=== PATIENT | female | born 1980 | race Caucasian/White ===

== ENCOUNTER 2019-03-12 12:25 | Outpatient (REF) | payer OTHER, MEDICAID, SELFPAY ==
[2019-03-12 18:34] LABS: HGB 14.9 g/dL (12.0-15.5); Mean Corp. HGB Concentration 33.9 g/dL (32.0-36.0); Mean Corpuscular Hemoglobin 30.7 pg (27.0-33.0); Mean Corpuscular Volume 90.7 fL (80-95); Mean Platelet Volume 10.2 fL (8.0-11.0); Platelet Count 240 x1000/uL (130-400); RBC 4.85 m/cumm (4.00-5.20); RBC Distribution Width 12.6 % (11.7-14.6); White Blood Cell Count 4.96 k/cumm (4.4-10.8)
[2019-03-12 18:46] LABS: Iron 88 ug/dL (50-175); Total Iron Binding Capacity 269 ug/dL (250-450); Transferrin Sat 33 % (15-50)
[2019-03-12 19:22] LABS: ALT 28 U/L (14-59); AST 12 U/L (15-37); Albumin 3.9 g/dL (3.4-5.0); Alkaline Phosphatase 83 U/L (46-116); Anion Gap 12.2 mmol/L (3-11); BUN 12 mg/dL (7-18); Bilirubin, Total 0.5 mg/dL (0.2-1.0); CO2 22.8 mmol/L (21.0-32.0); CREATININE 0.87 mg/dL (0.55-1.02); Calcium 8.9 mg/dL (8.5-10.1); Chloride 103 mmol/L (98-107); Folate 7.2 ng/mL (8.6-20.0); Glucose 87 mg/dL (70-100); Potassium 4.4 mmol/L (3.5-5.1); Sodium 138 mmol/L (136-145); Total Protein 7.4 g/dL (6.4-8.2); Vitamin B12 324 pg/mL (193-986)
== END 2019-03-12 12:45 ==
LOC: NCHCN 12:25
PROVIDERS: PCP Nurse Practitioner Family; Visit Provider Nurse Practitioner Family
DX: D51.9 Vitamin B12 deficiency anemia, unspecified (principal); E83.119 Hemochromatosis, unspecified
CPT/HCPCS: 80053; 85027; 82607; 82746; 83540; 83550

== ENCOUNTER 2019-04-29 01:51 | Outpatient (CLI) | payer MEDICARE, MEDICAID, SELFPAY ==
--- NOTE | 2019-04-29 14:00 | NS.NUTBLAN_ITS ---
DESCRIPTION: Jemma presents for nutrition visit for hemochromatosis but she admits to co-morbidities of rheumatoid arthritis and depression. She had gall bladder surgery 2 years ago. Reports constipation/diarrhea. 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 She moved to this area from [place] 5 months ago and self reports weight gain of 30 pounds. She is staying with one of her twin sons. Sleeps poorly with sleep study scheduled in May. States she binge eats twice a week. She loves sweet tea and drinks 4 cups at a time. Binge foods include pizza and Indonesian buffet where she feels it doesn't appear that she binges, but she feels she does. She is now physically active at [employer] and started yandel class. INTERVENTION: Reviewed high iron foods to limit red meat to less than 3 times a week as a general guideline for healthy eating for everyone. Reviewed basic diet for healthy eating. Discussed binge eating disorder, triggers, safe and unsafe foods. Discussed stressors. Offered support options including OA and she would like to look into this. PLAN: Jemma will: eat 4 cups vegetables daily; 2 fruit; 6 oz protein; yogurt daily. She will journal food; deep breath; use food tracking izabel. She will contact OA and is given contact information She will return in 1 month for follow up
== END 2019-04-29 02:11 ==
PROVIDERS: PCP Nurse Practitioner Family; Visit Provider Dietitian, Registered
DX: E83.119 Hemochromatosis, unspecified (principal); Z71.3 Dietary counseling and surveillance
CPT/HCPCS: 97802